=== PATIENT | male | born 2000 | race Caucasian/White ===

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

== ENCOUNTER 2019-03-16 15:12 | Emergency (ER) | payer SELFPAY ==
[~2019-03-16] VITALS: Ht 175.3 cm; Wt 65.0 kg
[2019-03-16 15:15] VITALS: BP 132/77
[2019-03-16 15:47] LABS: BASOPHILS # (AUTO) 0.02 x10^3/uL (0-0.3); BASOPHILS % (AUTO) 0 % (0-1); EOSINOPHILS # (AUTO) 0.01 x10^3/uL (0-0.8); EOSINOPHILS % (AUTO) 0 % (1-7); LYMPHOCYTES % (AUTO) 26 % (22-44); MD NO; MEAN CORPUSCULAR HEMOGLOBIN 30.5 pg (27.5-34.5); MEAN CORPUSCULAR HGB CONC 33.5 g/dL (33.2-36.2); MEAN CORPUSCULAR VOLUME 91.1 fL (81-97); MEAN PLATELET VOLUME 7.7 fL (7.4-10.4); MONOCYTES # (AUTO) 0.68 x10^3/uL (0-1.4); MONOCYTES % (AUTO) 10 % (2-9); NEUTROPHILS % (AUTO) 64 % (42-75); PLATELET COUNT 213 x10^3/uL (130-400); RED BLOOD COUNT 4.89 x10^6/uL (4.38-5.82); RED CELL DISTRIBUTION WIDTH 13.7 % (9.4-14.8)
--- NOTE | 2019-03-16 15:49 | NUR ---
PT REQUESTING SOME SORT OF CREAM FOR HIS TATTOO. PT STATES HE HAS AQUAPHOR AT HOME BUT FORGOT TO APPLY THIS AM. PT EDUCATED THAT AQUAPHOR IS THE BEST THING FOR THE TATTOO AND THAT WE DO NOT HAVE IT HERE. AT THIS TIME PT WANTS TO WAIT TILL HE GETS HOME TO APPLY THE CREAM.
[2019-03-16 15:52] LABS: INTERNATIONAL NORMALIZED RATIO 1.18 (0.93-1.1); PROTHROMBIN TIME 12.3 Seconds (9.6-11.5)
[2019-03-16 15:54] LABS: ALANINE AMINOTRANSFERASE 15 U/L (12-78); ALBUMIN 4.2 g/dL (3.4-5.0); ANION GAP 7 mmol/L (5-15); CALCIUM 8.9 mg/dL (8.5-10.1); CHLORIDE 109 mmol/L (98-107); CREATININE 0.85 mg/dL (0.7-1.3)
[2019-03-16 15:56] LABS: ALKALINE PHOSPHATASE 42 U/L (45-117); TOTAL PROTEIN 7.5 g/dL (6.4-8.2)
[2019-03-16] MEDS ORDERED: BACITRACIN OINT 500U/GM, 28GM TP ONE (16:00)
[2019-03-16] MEDS ORDERED: ONDANSETRON ODT 4 MG PO ONE (16:30)
[2019-03-16] MEDS ORDERED: FAMOTIDINE 20 MG TABLET PO ONE (16:30)
[2019-03-16] MEDS ORDERED: FAMOTIDINE 20 MG TABLET ONE (16:39)
[2019-03-16] MEDS ORDERED: ONDANSETRON ODT 4 MG ONE (16:39)
--- NOTE | 2019-03-16 16:50 | NUR ---
TASK RN: DC EDUCATION PROVIDED, PT DEMONSTRATES UNDERSTANDING. PT AMBUALTED STEADILY TO DC WITH RN AND FAMILY MEMBER. FAMILY TO TRANSPORT PT HOME.
== END 2019-03-16 16:52 | disposition home or self-care (01) ==
LOC: ED 16:51
DX: K22.6 Gastro-esophageal laceration-hemorrhage syndrome (principal)
CPT/HCPCS: 36415; 80053; 85025; 85610; 99283; Q0162

== ENCOUNTER 2021-01-06 13:13 | Emergency (ER) | payer SELFPAY ==
[~2021-01-06] VITALS: Ht 175.3 cm; Wt 72.9 kg
--- NOTE | 2021-01-06 14:23 | NUR ---
DIRECTOR REGULATORY COMPLIANCE: PT TO ROOM FROM LOBBY
[2021-01-06] MEDS ORDERED: KETOROLAC 30 MG/1 ML ONE (14:51)
[2021-01-06 15:00] VITALS: BP 118/71
[2021-01-06] MEDS ORDERED: KETOROLAC 30 MG/1 ML IM ONE (15:00)
== END 2021-01-06 15:02 | disposition home or self-care (01) ==
LOC: ED 14:50
DX: S43.422A Sprain of left rotator cuff capsule, initial encounter (principal); X58.XXXA Exposure to other specified factors, initial encounter; Y93.64 Activity, baseball; Y92.320 Baseball field as the place of occurrence of the external cause; Y99.8 Other external cause status
CPT/HCPCS: 73030; 96372; 99283; J1885

== ENCOUNTER 2021-04-23 11:14 | Emergency (ER) | payer SELFPAY ==
[~2021-04-23] VITALS: Ht 175.3 cm; Wt 66.6 kg
[2021-04-23 12:26] VITALS: BP 118/75
--- NOTE | 2021-04-23 12:27 | NUR ---
Pt c/o left groin pain that started yesterday, is constant but worse with olivia labor. Denies urinary symptoms.
== END 2021-04-23 13:23 | disposition home or self-care (01) ==
LOC: ED 13:17
DX: M79.651 Pain in right thigh (principal)
CPT/HCPCS: 99281

== ENCOUNTER 2021-05-12 11:49 | Emergency (ER) | payer OTHER ==
[~2021-05-12] VITALS: Ht 170.2 cm; Wt 80.0 kg
[2021-05-12 11:56] VITALS: BP 121/79
--- NOTE | 2021-05-12 12:43 | NUR ---
drier and pulverizer tender note: Pt to room from lobby.
[2021-05-12] MEDS ORDERED: KETOROLAC 30 MG/1 ML IM ONE (13:30)
[2021-05-12] MEDS ORDERED: CYCLOBENZAPRINE 10 MG TABLET PO ONE (13:30)
--- NOTE | 2021-05-12 13:33 | NUR ---
URINE SENT TO LAB
[2021-05-12 13:51] LABS: MICROSCOPIC NOT IND
== END 2021-05-12 15:01 | disposition home or self-care (01) ==
LOC: ED 14:48
DX: S16.1XXA Strain of muscle, fascia and tendon at neck level, initial encounter (principal); S29.012A Strain of muscle and tendon of back wall of thorax, initial encounter; R07.89 Other chest pain; V49.19XA Passenger injured in collision with other motor vehicles in nontraffic accident, initial encounter; Y93.89 Activity, other specified; Y92.410 Unspecified street and highway as the place of occurrence of the external cause; Y99.8 Other external cause status
CPT/HCPCS: 71101; 72072; 81003; 96372; 99284; J1885